=== PATIENT | male | born 1955 | race Caucasian/White ===

== ENCOUNTER 2016-11-30 23:59 | Inpatient (IN) | payer MEDICARE, OTHER ==
[~2016-11-30] VITALS: Ht 165.1 cm; Wt 63.3 kg
[~2016-11-30 23:59] MED LIST: AMIN30LI28 PO; ASPI-1182 PO; CLOP75 PO; DARU600T PO; ETRA200T PO; FENO160 PO; FOLI1CAP2 PO; GABA-529 PO; INSLAN SQ; METO50 PO; PERCT PO; PRAV10TA39 PO; RITO100T PO; SEVEC800 PO
[2016-12-01 00:34] LABS: BASOPHILS # (AUTO) 0.03 K/uL (0.00-0.20); BASOPHILS % (AUTO) 0.4 % (0.0-2.0); EOSINOPHILS # (AUTO) 0.12 K/uL (0.00-0.70); EOSINOPHILS % (AUTO) 1.95 % (1.0-6.0); HEMATOCRIT 34.7 % (41-53); HEMOGLOBIN 11.8 g/dL (13.5-17.5); LYMPHOCYTES # (AUTO) 1.2 K/uL (1.0-4.8); LYMPHOCYTES % (AUTO) 18.8 % (22.0-44.0); MEAN CORPUSCULAR HEMOGLOBIN 35.3 pg (26.0-34.0); MEAN CORPUSCULAR HGB CONC 34.1 G/dL (31.0-37.0); MEAN CORPUSCULAR VOLUME 104 fL (80-100); MONOCYTES # (AUTO) 0.7 K/uL (0.1-1.0); MONOCYTES % (AUTO) 11.1 % (2.0-9.0); NEUTROPHILS # (AUTO) 4.3 K/uL (1.8-7.7); NEUTROPHILS % (AUTO) 67.7 % (40.0-70.0); PLATELET COUNT (AUTO) 198 K/uL (150-450); RED BLOOD CELL COUNT(AUTO) 3.35 MIL/uL (4.50-5.90); RED CELL DISTRIBUTION WIDTH 14.9 % (11.5-14.5); WHITE BLOOD COUNT (AUTO) 6.3 K/uL (4.5-11.0)
[2016-12-01 00:44] LABS: ANION GAP 15 mmol/L (8-16); CALCIUM, TOTAL 8.7 mg/dL (8.8-10.5); CARBON DIOXIDE 27 mmol/L (22-29); CHLORIDE 93 mmol/L (98-107); CREATININE 13.88 mg/dL (0.60-1.30); GLOMERULAR FILTR. RATE CALC 4 mL/min (>60); POTASSIUM 4.8 mmol/L (3.5-5.1); SODIUM SERUM 135 mmol/L (136-145); UREA NITROGEN, BLOOD 70 mg/dL (7-18)
[2016-12-01 00:47] LABS: INR 1.1 (0.9-1.1); PROTHROMBIN TIME 11.6 SEC (9.4-11.6)
[2016-12-01 00:50] LABS: ALANINE AMINOTRANSFERASE 36 U/L (12-78); ALBUMIN 3.5 g/dL (3.4-5.0); ASPARTATE AMINOTRANSFERASE 30 U/L (15-37); BILIRUBIN,TOTAL 0.2 mg/dL (0.1-1.0); CREATINE KINASE, TOTAL 63 U/L (39-308); TOTAL PROTEIN, SERUM 8.2 g/dL (6.4-8.2)
[2016-12-01] MEDS ORDERED: 0.9% SODIUM CHLORIDE 10 ML SYRINGE IVP PRN (03:15)
[2016-12-01] MEDS ORDERED: ACETAMINOPHEN 325 MG TABLET PO PRN (03:15)
[2016-12-01] MEDS ORDERED: ONDANSETRON HCL 4 MG/2 ML VIAL IVP PRN ×2 (03:15→06:30)
[2016-12-01] MEDS ORDERED: SODIUM CHLORIDE 0.9% 1,000 ML IV ONE (05:00)
[2016-12-01] MEDS ORDERED: BISACODYL 10 MG RECTAL RECTAL SUPPOSITORY PR PRN (06:30)
[2016-12-01] MEDS ORDERED: DEXTROSE 50%-WATER 25 GM/50 ML SYRINGE IVP PRN (06:45)
[2016-12-01] MEDS ORDERED: INSULIN ASPART 100 UNITS/ML SQ PRN (06:45)
[2016-12-01 08:35] VITALS: BP 98/52
[2016-12-01] MEDS: HEPARIN SODIUM,PORCINE 5,000 UNITS/ML VIAL SQ SCH ×2 (09:00→20:27)
[2016-12-01] MEDS: DOCUSATE SODIUM 100 MG CAPSULE PO SCH ×2 (09:27→20:27)
[2016-12-01] MEDS: ASPIRIN 81 MG CHEWABLE TABLET PO SCH (09:27)
[2016-12-01] MEDS: CLOPIDOGREL BISULFATE 75 MG TABLET PO SCH (09:27)
[2016-12-01] MEDS: PANTOPRAZOLE SODIUM 40 MG DR TABLET PO SCH (09:27)
[2016-12-01] MEDS: VITAMIN B COMP/VIT C/FOLIC ACID CAPSULE PO SCH (09:27)
[2016-12-01 11:21] VITALS: BP 98/53
[2016-12-01 15:07] VITALS: BP 104/54
[2016-12-01 19:34] VITALS: BP 135/71
[2016-12-01 23:18] VITALS: BP 123/54
[2016-12-02 04:16] VITALS: BP 108/55
[2016-12-02] MEDS: ACETAMINOPHEN 325 MG TABLET PO PRN (04:51)
[2016-12-02 07:06] VITALS: BP 111/52
[2016-12-02] MEDS: ASPIRIN 81 MG CHEWABLE TABLET PO SCH (08:08)
[2016-12-02] MEDS: DOCUSATE SODIUM 100 MG CAPSULE PO SCH ×2 (08:08→20:00)
[2016-12-02] MEDS: CLOPIDOGREL BISULFATE 75 MG TABLET PO SCH (08:08)
[2016-12-02] MEDS: VITAMIN B COMP/VIT C/FOLIC ACID CAPSULE PO SCH (08:08)
[2016-12-02] MEDS: PANTOPRAZOLE SODIUM 40 MG DR TABLET PO SCH (08:08)
[2016-12-02] MEDS: HEPARIN SODIUM,PORCINE 5,000 UNITS/ML VIAL SQ SCH ×2 (08:12→20:01)
[2016-12-02 11:22] VITALS: BP 109/50
[2016-12-02 15:57] VITALS: BP 112/74
[2016-12-02 17:39] LABS: GLUCOSE,POINT OF CARE 98 MG/DL (70-110)
[2016-12-02 19:27] VITALS: BP 146/60
[2016-12-02] MEDS: RITONAVIR 100 MG TABLET PO SCH (19:44)
[2016-12-02 19:57] LABS: GLUCOSE,POINT OF CARE 128 MG/DL (70-110)
[2016-12-02] MEDS: ETRAVIRINE 200 MG TABLET PO SCH (20:00)
[2016-12-02 23:47] VITALS: BP 129/64
[2016-12-03] MEDS: ACETAMINOPHEN 325 MG TABLET PO PRN (00:43)
[2016-12-03 00:44] VITALS: BP 132/58
[2016-12-03 05:21] VITALS: BP 125/60
[2016-12-03 06:53] LABS: CALCIUM, TOTAL 8.9 mg/dL (8.8-10.5); CREATININE 12.5 mg/dL (0.60-1.30); POTASSIUM 5.3 mmol/L (3.5-5.1)
[2016-12-03 07:03] LABS: BASOPHILS # (AUTO) 0.02 K/uL (0.00-0.20); BASOPHILS % (AUTO) 0.3 % (0.0-2.0); EOSINOPHILS # (AUTO) 0.28 K/uL (0.00-0.70); EOSINOPHILS % (AUTO) 4.25 % (1.0-6.0); HEMATOCRIT 33.1 % (41-53); HEMOGLOBIN 11.2 g/dL (13.5-17.5); LYMPHOCYTES # (AUTO) 1.7 K/uL (1.0-4.8); LYMPHOCYTES % (AUTO) 25.5 % (22.0-44.0); MEAN CORPUSCULAR HEMOGLOBIN 35.5 pg (26.0-34.0); MEAN CORPUSCULAR HGB CONC 33.9 G/dL (31.0-37.0); MEAN CORPUSCULAR VOLUME 105 fL (80-100); MONOCYTES # (AUTO) 0.9 K/uL (0.1-1.0); MONOCYTES % (AUTO) 13.3 % (2.0-9.0); NEUTROPHILS # (AUTO) 3.8 K/uL (1.8-7.7); NEUTROPHILS % (AUTO) 56.7 % (40.0-70.0); PLATELET COUNT (AUTO) 176 K/uL (150-450); RED BLOOD CELL COUNT(AUTO) 3.16 MIL/uL (4.50-5.90); RED CELL DISTRIBUTION WIDTH 15.2 % (11.5-14.5); WHITE BLOOD COUNT (AUTO) 6.7 K/uL (4.5-11.0)
[2016-12-03 07:20] VITALS: BP 147/61
[2016-12-03] MEDS: HEPARIN SODIUM,PORCINE 5,000 UNITS/ML VIAL SQ SCH ×2 (09:00→21:00)
[2016-12-03] MEDS: PANTOPRAZOLE SODIUM 40 MG DR TABLET PO SCH (09:02)
[2016-12-03] MEDS: ETRAVIRINE 200 MG TABLET PO SCH ×2 (09:03→21:20)
[2016-12-03] MEDS: DOCUSATE SODIUM 100 MG CAPSULE PO SCH ×2 (09:03→21:20)
[2016-12-03] MEDS: VITAMIN B COMP/VIT C/FOLIC ACID CAPSULE PO SCH (09:03)
[2016-12-03] MEDS: ASPIRIN 81 MG CHEWABLE TABLET PO SCH (09:03)
[2016-12-03] MEDS: RITONAVIR 100 MG TABLET PO SCH ×2 (09:03→18:39)
[2016-12-03] MEDS: CLOPIDOGREL BISULFATE 75 MG TABLET PO SCH (09:08)
[2016-12-03 10:51] LABS: RBC MORPHOLOGY COMMENT ABNORMAL RBC MORPH
[2016-12-03 10:56] VITALS: BP 139/67
[2016-12-03 16:09] LABS: OVA AND PARASITES EXAM Final report
[2016-12-03 16:10] VITALS: BP 139/64
[2016-12-03 19:25] VITALS: BP 145/72
[2016-12-03 20:13] LABS: GLUCOSE,POINT OF CARE 102 MG/DL (70-110)
[2016-12-03 20:13] LABS: GLUCOSE COMMENT 1 Received Meds; GLUCOSE,POINT OF CARE 144 MG/DL (70-110)
[2016-12-03 20:13] LABS: GLUCOSE COMMENT 1 Received Meds; GLUCOSE,POINT OF CARE 140 MG/DL (70-110)
[2016-12-03 20:13] LABS: GLUCOSE,POINT OF CARE 122 MG/DL (70-110)
[2016-12-03 20:13] LABS: GLUCOSE,POINT OF CARE 124 MG/DL (70-110)
[2016-12-03 20:14] LABS: GLUCOSE,POINT OF CARE 158 MG/DL (70-110)
[2016-12-03 20:18] LABS: GLUCOSE,POINT OF CARE 81 MG/DL (70-110)
[2016-12-03 20:18] LABS: GLUCOSE,POINT OF CARE 139 MG/DL (70-110)
[2016-12-04 00:06] VITALS: BP 138/71
[2016-12-04 03:58] VITALS: BP 131/73
[2016-12-04 06:48] LABS: GLUCOSE,POINT OF CARE 76 MG/DL (70-110)
[2016-12-04 06:48] LABS: GLUCOSE,POINT OF CARE 121 MG/DL (70-110)
[2016-12-04 06:56] VITALS: BP 124/64
[2016-12-04] MEDS: ETRAVIRINE 200 MG TABLET PO SCH (08:28)
[2016-12-04] MEDS: PANTOPRAZOLE SODIUM 40 MG DR TABLET PO SCH (08:29)
[2016-12-04] MEDS: CLOPIDOGREL BISULFATE 75 MG TABLET PO SCH (08:29)
[2016-12-04] MEDS: ASPIRIN 81 MG CHEWABLE TABLET PO SCH (08:29)
[2016-12-04] MEDS: RITONAVIR 100 MG TABLET PO SCH (08:29)
[2016-12-04] MEDS: DOCUSATE SODIUM 100 MG CAPSULE PO SCH (08:31)
[2016-12-04] MEDS: VITAMIN B COMP/VIT C/FOLIC ACID CAPSULE PO SCH (08:31)
[2016-12-04] MEDS: HEPARIN SODIUM,PORCINE 5,000 UNITS/ML VIAL SQ SCH (08:31)
[2016-12-04 11:19] VITALS: BP 111/55
[2016-12-04 15:03] LABS: GLUCOSE,POINT OF CARE 127 MG/DL (70-110)
== END 2016-12-04 13:15 | disposition home or self-care (01) | DRG 314 ==
LOC: EMS 12-01 → 5S 12-01 03:47
PROVIDERS: ADMIT Internal Medicine; ATTEND Internal Medicine
PROC: 5A1D70Z Performance of Urinary Filtration, Intermittent, Less than 6 Hours Per Day (ICD-10-PCS; principal; 2016-12-01)
PROC: 5A1D70Z Performance of Urinary Filtration, Intermittent, Less than 6 Hours Per Day (ICD-10-PCS; 2016-12-03)
DX: I95.9 Hypotension, unspecified (principal); N18.6 End stage renal disease; E11.22 Type 2 diabetes mellitus with diabetic chronic kidney disease; I12.0 Hypertensive chronic kidney disease with stage 5 chronic kidney disease or end stage renal disease; K31.84 Gastroparesis; E11.43 Type 2 diabetes mellitus with diabetic autonomic (poly)neuropathy; E87.5 Hyperkalemia; R42 Dizziness and giddiness; K21.9 Gastro-esophageal reflux disease without esophagitis; A08.4 Viral intestinal infection, unspecified; R19.7 Diarrhea, unspecified; I25.10 Atherosclerotic heart disease of native coronary artery without angina pectoris; Z99.2 Dependence on renal dialysis; Z95.5 Presence of coronary angioplasty implant and graft; Z79.4 Long term (current) use of insulin; Z79.82 Long term (current) use of aspirin; Z79.1 Long term (current) use of non-steroidal anti-inflammatories (NSAID); Z79.899 Other long term (current) drug therapy; Z82.49 Family history of ischemic heart disease and other diseases of the circulatory system; Z83.3 Family history of diabetes mellitus; Z82.3 Family history of stroke; Z84.89 Family history of other specified conditions; Z21 Asymptomatic human immunodeficiency virus [HIV] infection status
CPT/HCPCS: 70450; 82962; 87081; 87177; 87206; 87340; 89055; 90935; 93005; 96372; 99285; J1644

== ENCOUNTER 2017-03-12 14:00 | Emergency (ER) | payer MEDICARE, OTHER ==
[~2017-03-12] VITALS: Ht 167.6 cm; Wt 60.9 kg
[~2017-03-12 14:00] MED LIST changes: -INSLAN SQ; -METO50 PO
[2017-03-12 14:13] LABS: GLUCOSE,POINT OF CARE 73 MG/DL (70-110)
[2017-03-12] MEDS ORDERED: DiphenhydrAMINE HCL 25 MG CAPSULE PO ONE (15:00)
[2017-03-12] MEDS ORDERED: LORazepam 1 MG TABLET PO ONE (15:00)
[2017-03-12 15:12] LABS: BASOPHILS # (AUTO) 0.03 K/uL (0.00-0.20); BASOPHILS % (AUTO) 0.5 % (0.0-2.0); EOSINOPHILS # (AUTO) 0.24 K/uL (0.00-0.70); HEMATOCRIT 36.1 % (41-53); HEMOGLOBIN 11.9 g/dL (13.5-17.5); LYMPHOCYTES # (AUTO) 1.6 K/uL (1.0-4.8); LYMPHOCYTES % (AUTO) 24.4 % (22.0-44.0); MEAN CORPUSCULAR HGB CONC 32.9 G/dL (31.0-37.0); MEAN CORPUSCULAR VOLUME 100 fL (80-100); MONOCYTES # (AUTO) 0.8 K/uL (0.1-1.0); MONOCYTES % (AUTO) 11.8 % (2.0-9.0); NEUTROPHILS # (AUTO) 3.8 K/uL (1.8-7.7); NEUTROPHILS % (AUTO) 59.5 % (40.0-70.0); PLATELET COUNT (AUTO) 188 K/uL (150-450); RED CELL DISTRIBUTION WIDTH 18.1 % (11.5-14.5)
[2017-03-12 15:27] LABS: ANION GAP 7 mmol/L (8-16); CALCIUM, TOTAL 8.1 mg/dL (8.8-10.5); CARBON DIOXIDE 34 mmol/L (22-29); CHLORIDE 96 mmol/L (98-107); CREATININE 11.01 mg/dL (0.60-1.30); GLOMERULAR FILTR. RATE CALC 5 mL/min (>60); GLUCOSE,RANDOM 76 mg/dL (70-110); POTASSIUM 4.9 mmol/L (3.5-5.1); SODIUM SERUM 137 mmol/L (136-145); UREA NITROGEN, BLOOD 47 mg/dL (7-18)
[2017-03-12 15:52] LABS: ALANINE AMINOTRANSFERASE 41 U/L (12-78); ALBUMIN 3.3 g/dL (3.4-5.0); ALKALINE PHOSPHATASE 104 U/L (46-116); ASPARTATE AMINOTRANSFERASE 58 U/L (15-37); BILIRUBIN,TOTAL 0.3 mg/dL (0.1-1.0); CREATINE KINASE MB 0.7 ng/mL (0-5); CREATINE KINASE, TOTAL 84 U/L (39-308)
[2017-03-12 17:09] VITALS: BP 142/67
== END 2017-03-12 17:10 | disposition home or self-care (01) ==
LOC: EMS 14:03
DX: M62.838 Other muscle spasm (principal); I10 Essential (primary) hypertension; E11.9 Type 2 diabetes mellitus without complications; I25.10 Atherosclerotic heart disease of native coronary artery without angina pectoris; K21.9 Gastro-esophageal reflux disease without esophagitis
CPT/HCPCS: 82962; 99285

== ENCOUNTER 2018-01-14 08:49 | Inpatient (IN) | payer BC, MEDICAID ==
[~2018-01-14] VITALS: Ht 167.6 cm; Wt 63.2 kg
[2018-01-14 09:23] LABS: GLUCOSE,POINT OF CARE 131 MG/DL (70-110)
[2018-01-14 09:43] LABS: BASOPHILS % (AUTO) 0.6 % (0.0-2.0); EOSINOPHILS % (AUTO) 3.9 % (1.0-6.0); HEMATOCRIT 29.1 % (41-53); HEMOGLOBIN 9.8 g/dL (13.5-17.5); LYMPHOCYTES # (AUTO) 0.9 K/uL (1.0-4.8); LYMPHOCYTES % (AUTO) 12.4 % (22.0-44.0); MEAN CORPUSCULAR HEMOGLOBIN 32.3 pg (26.0-34.0); MEAN CORPUSCULAR HGB CONC 33.6 G/dL (31.0-37.0); MEAN CORPUSCULAR VOLUME 96 fL (80-100); MONOCYTES # (AUTO) 0.7 K/uL (0.1-1.0); MONOCYTES % (AUTO) 9.2 % (2.0-9.0); NEUTROPHILS # (AUTO) 5.4 K/uL (1.8-7.7); NEUTROPHILS % (AUTO) 73.9 % (40.0-70.0); PLATELET COUNT (AUTO) 229 K/uL (150-450); RED BLOOD CELL COUNT(AUTO) 3.04 MIL/uL (4.50-5.90); RED CELL DISTRIBUTION WIDTH 18.9 % (11.5-14.5)
[2018-01-14 09:53] LABS: CALCIUM, TOTAL 8.9 mg/dL (8.8-10.5); CREATININE 8.55 mg/dL (0.60-1.30); POTASSIUM 5.5 mmol/L (3.5-5.1)
[2018-01-14 09:59] LABS: ALBUMIN 3.9 g/dL (3.4-5.0); BILIRUBIN,TOTAL 1.4 mg/dL (0.1-1.0); TOTAL PROTEIN, SERUM 8.1 g/dL (6.4-8.2)
[2018-01-14] MEDS ORDERED: OxyCODONE HCL/ACETAMINOPHEN 5-325 MG TABLET PO ONE (11:30)
[2018-01-14] MEDS ORDERED: ONDANSETRON HCL 4 MG/2 ML VIAL IVP PRN ×2 (14:30→22:00)
[2018-01-14] MEDS ORDERED: ACETAMINOPHEN 325 MG TABLET PO PRN ×2 (14:30→22:00)
[2018-01-14] MEDS ORDERED: 0.9% SODIUM CHLORIDE 10 ML SYRINGE IVP PRN (14:30)
[2018-01-14 18:12] VITALS: BP 129/72
[2018-01-14 19:54] VITALS: BP 159/83
[2018-01-14] MEDS: OxyCODONE HCL/ACETAMINOPHEN 5-325 MG TABLET PO PRN (20:41)
[2018-01-14] MEDS: ETRAVIRINE 200 MG TABLET PO SCH (21:18)
[2018-01-14] MEDS: GABAPENTIN 100 MG CAPSULE PO SCH (21:19)
[2018-01-14] MEDS ORDERED: ALBUTEROL SULFATE 2.5 MG/0.5 ML NEB SOLUTION NEB PRN (22:00)
[2018-01-14] MEDS ORDERED: MAGNESIUM HYDROXIDE SUSPENSION 30 ML UDCUP PO PRN (22:00)
[2018-01-14] MEDS ORDERED: ZOLPIDEM TARTRATE 10 MG TABLET PO PRN (22:00)
[2018-01-14] MEDS ORDERED: MORPHINE SULFATE 4 MG/ML SYRINGE IVP PRN (22:00)
[2018-01-14] MEDS ORDERED: HYDROCODONE/ACETAMINOPHEN 5-325 MG TABLET PO PRN (22:00)
[2018-01-14] MEDS ORDERED: IPRATROPIUM BROMIDE 0.5 MG/2.5 ML NEB SOLUTION NEB PRN (22:00)
[2018-01-14 23:37] VITALS: BP 154/71
[2018-01-14] MEDS: NITROGLYCERIN 2% (1 GM=INCH) PACKET TP SCH (23:49)
[2018-01-15 04:50] VITALS: BP 131/65
[2018-01-15] MEDS: NITROGLYCERIN 2% (1 GM=INCH) PACKET TP SCH ×4 (05:53→23:46)
[2018-01-15 07:35] VITALS: BP 148/78
[2018-01-15 07:46] LABS: BASOPHILS % (AUTO) 0.5 % (0.0-2.0); HEMATOCRIT 26.1 % (41-53); HEMOGLOBIN 9.3 g/dL (13.5-17.5); LYMPHOCYTES # (AUTO) 1.2 K/uL (1.0-4.8); MEAN CORPUSCULAR HEMOGLOBIN 33.8 pg (26.0-34.0); MEAN CORPUSCULAR HGB CONC 35.7 G/dL (31.0-37.0); MEAN CORPUSCULAR VOLUME 95 fL (80-100); MONOCYTES # (AUTO) 0.6 K/uL (0.1-1.0); MONOCYTES % (AUTO) 7.6 % (2.0-9.0); NEUTROPHILS # (AUTO) 5.7 K/uL (1.8-7.7); NEUTROPHILS % (AUTO) 72.9 % (40.0-70.0); PLATELET COUNT (AUTO) 225 K/uL (150-450); RED BLOOD CELL COUNT(AUTO) 2.75 MIL/uL (4.50-5.90); RED CELL DISTRIBUTION WIDTH 18.9 % (11.5-14.5)
[2018-01-15 07:58] LABS: ALBUMIN 3.1 g/dL (3.4-5.0); BILIRUBIN,TOTAL 1.2 mg/dL (0.1-1.0); CALCIUM, TOTAL 9.2 mg/dL (8.8-10.5); CHOL/HDL RATIO 1.9 (4.2-7.3); CREATININE 10.39 mg/dL (0.60-1.30); POTASSIUM 5.6 mmol/L (3.5-5.1); TOTAL PROTEIN, SERUM 7.2 g/dL (6.4-8.2)
[2018-01-15] MEDS: PANTOPRAZOLE SODIUM 40 MG DR TABLET PO SCH (08:42)
[2018-01-15] MEDS: SEVELAMER CARBONATE 800 MG TABLET PO SCH ×3 (08:43→17:43)
[2018-01-15] MEDS: FENOFIBRATE 160 MG TABLET PO SCH (08:43)
[2018-01-15] MEDS: DOCUSATE SODIUM 100 MG CAPSULE PO SCH ×2 (08:43→21:03)
[2018-01-15] MEDS: RITONAVIR 100 MG TABLET PO SCH ×2 (08:43→17:43)
[2018-01-15] MEDS: GABAPENTIN 100 MG CAPSULE PO SCH ×2 (08:43→21:03)
[2018-01-15] MEDS: DARUNAVIR ETHANOLATE 600 MG TABLET PO SCH ×2 (08:43→17:43)
[2018-01-15] MEDS: ETRAVIRINE 200 MG TABLET PO SCH ×2 (08:43→21:03)
[2018-01-15] MEDS: ASPIRIN 81 MG EC TABLET PO SCH (08:43)
[2018-01-15] MEDS: AMINO ACIDS/PROTEIN HYDROLYS 30 ML TUBE PO SCH ×2 (08:44→11:49)
[2018-01-15] MEDS: CLOPIDOGREL BISULFATE 75 MG TABLET PO SCH (08:44)
[2018-01-15] MEDS: PRAVASTATIN SODIUM 10 MG TABLET PO SCH (08:44)
[2018-01-15] MEDS ORDERED: ASPIRIN 81 MG CHEWABLE TABLET PO SCH (09:00)
[2018-01-15] MEDS: OxyCODONE HCL/ACETAMINOPHEN 5-325 MG TABLET PO PRN ×2 (10:09→21:53)
[2018-01-15] MEDS ORDERED: SODIUM CHLORIDE 0.9% 2,000 ML IV ONE (10:40)
[2018-01-15 11:39] VITALS: BP 165/84
[2018-01-15 16:13] VITALS: BP 147/78
[2018-01-15 20:00] VITALS: BP 142/75
[2018-01-15 23:15] VITALS: BP 147/74
[2018-01-16 04:45] VITALS: BP_SYST 107; BP_SYST 157; BP_DIAS 56; BP_DIAS 85
[2018-01-16] MEDS: NITROGLYCERIN 2% (1 GM=INCH) PACKET TP SCH ×2 (05:33→12:00)
[2018-01-16 07:34] LABS: BASOPHILS % (AUTO) 0.5 % (0.0-2.0); HEMATOCRIT 25.1 % (41-53); HEMOGLOBIN 8.7 g/dL (13.5-17.5); LYMPHOCYTES # (AUTO) 1.1 K/uL (1.0-4.8); LYMPHOCYTES % (AUTO) 16.1 % (22.0-44.0); MEAN CORPUSCULAR HEMOGLOBIN 32.2 pg (26.0-34.0); MEAN CORPUSCULAR HGB CONC 34.6 G/dL (31.0-37.0); MEAN CORPUSCULAR VOLUME 93 fL (80-100); MONOCYTES # (AUTO) 0.7 K/uL (0.1-1.0); MONOCYTES % (AUTO) 9.4 % (2.0-9.0); PLATELET COUNT (AUTO) 224 K/uL (150-450); RED CELL DISTRIBUTION WIDTH 18.1 % (11.5-14.5)
[2018-01-16 07:39] VITALS: BP 146/69
[2018-01-16] MEDS: AMINO ACIDS/PROTEIN HYDROLYS 30 ML TUBE PO SCH ×2 (09:12→12:00)
[2018-01-16 09:20] LABS: ALBUMIN 2.9 g/dL (3.4-5.0); BILIRUBIN,TOTAL 0.7 mg/dL (0.1-1.0); CALCIUM, TOTAL 8.9 mg/dL (8.8-10.5); CREATININE 8.55 mg/dL (0.60-1.30); POTASSIUM 5.2 mmol/L (3.5-5.1); TOTAL PROTEIN, SERUM 7.2 g/dL (6.4-8.2)
[2018-01-16 11:06] VITALS: BP 137/87
[2018-01-16] MEDS: SEVELAMER CARBONATE 800 MG TABLET PO SCH ×2 (12:00→12:11)
[2018-01-16] MEDS: DOCUSATE SODIUM 100 MG CAPSULE PO SCH (12:11)
[2018-01-16] MEDS: CLOPIDOGREL BISULFATE 75 MG TABLET PO SCH (12:11)
[2018-01-16] MEDS: ASPIRIN 81 MG EC TABLET PO SCH (12:11)
[2018-01-16] MEDS: PANTOPRAZOLE SODIUM 40 MG DR TABLET PO SCH (12:11)
[2018-01-16] MEDS: ETRAVIRINE 200 MG TABLET PO SCH (12:12)
[2018-01-16] MEDS: PRAVASTATIN SODIUM 10 MG TABLET PO SCH (12:12)
[2018-01-16] MEDS: DARUNAVIR ETHANOLATE 600 MG TABLET PO SCH (12:12)
[2018-01-16] MEDS: GABAPENTIN 100 MG CAPSULE PO SCH (12:12)
[2018-01-16] MEDS: RITONAVIR 100 MG TABLET PO SCH (12:12)
[2018-01-16] MEDS: FENOFIBRATE 160 MG TABLET PO SCH (12:13)
[2018-01-16 15:24] VITALS: BP 144/71
[2018-01-17] MEDS ORDERED: EPOETIN ALFA 10,000 UNITS/ML VIAL SQ SCH (09:00)
== END 2018-01-16 15:50 | disposition home or self-care (01) | DRG 313 ==
LOC: EMS 08:50 → 5S 15:52
PROVIDERS: ADMIT Hospitalist; ATTEND Hospitalist
PROC: 5A1D70Z Performance of Urinary Filtration, Intermittent, Less than 6 Hours Per Day (ICD-10-PCS; principal; 2018-01-15)
DX: R07.89 Other chest pain (principal); N18.6 End stage renal disease; I13.11 Hypertensive heart and chronic kidney disease without heart failure, with stage 5 chronic kidney disease, or end stage renal disease; E78.5 Hyperlipidemia, unspecified; I25.10 Atherosclerotic heart disease of native coronary artery without angina pectoris; D63.8 Anemia in other chronic diseases classified elsewhere; E21.3 Hyperparathyroidism, unspecified; E11.22 Type 2 diabetes mellitus with diabetic chronic kidney disease; D63.1 Anemia in chronic kidney disease; R62.7 Adult failure to thrive; K21.9 Gastro-esophageal reflux disease without esophagitis; Z87.01 Personal history of pneumonia (recurrent); Z95.1 Presence of aortocoronary bypass graft; Z83.3 Family history of diabetes mellitus; Z82.49 Family history of ischemic heart disease and other diseases of the circulatory system; Z91.14 Patient's other noncompliance with medication regimen; Z99.2 Dependence on renal dialysis
CPT/HCPCS: 87081; 87340; 93005; 93306; 96374; G0378; J2270; J2405; J7030